=== PATIENT | female | born 1955 | race Caucasian/White ===

== ENCOUNTER 2016-07-13 17:43 | Emergency (ER) | payer OTHER ==
[~2016-07-13 17:43] MED LIST: CLARITIN10 M4 PO; DIOVAN160 M PO; LOPID600 MG PO; LOVASTATIN40 M1 PO; OMEPRAZOLE40 MG PO; PEPCID20 MG PO; SYNTHROID100 MC1 PO; VITAMIN D-50000 IU/C PO
[2016-07-13] MEDS ORDERED: LEXAPRO10 M2 PO (19:42)
[2016-07-13] MEDS ORDERED: GLUCOPHAGE500 M3 PO (19:43)
[2016-07-13] MEDS ORDERED: SINGULAIR10 M1 PO (19:43)
[2016-09-18] MEDS ORDERED: LOVASTATIN40 M2 PO (20:44)
[2016-09-18] MEDS ORDERED: HYDROCODON-ACE1 EA17 PO (20:44)
[2016-09-18] MEDS ORDERED: MULTIVITAMINS1 EAC1 PO (20:44)
[2016-09-18] MEDS ORDERED: SINGULAIR10 M1 PO (20:45)
[2016-09-18] MEDS ORDERED: LEXAPRO10 M2 PO (20:45)
[2016-09-18] MEDS ORDERED: CLARITIN10 M6 PO (20:45)
[2016-09-18] MEDS ORDERED: RANITIDINE HCL150 M2 PO (20:45)
[2016-09-18] MEDS ORDERED: VITAMIN D250000 UNI1 PO (20:46)
[2016-09-18] MEDS ORDERED: DIOVAN160 M1 PO (20:46)
[2016-09-18] MEDS ORDERED: OMEPRAZOLE40 M2 PO (20:46)
[2016-09-18] MEDS ORDERED: FLONASE ALLERG9.9 ML (20:46)
[2016-09-18] MEDS ORDERED: SYNTHROID100 MC1 PO (20:47)
[2016-09-18] MEDS ORDERED: GLUCOPHAGE500 M3 PO (20:47)
[2016-09-19] MEDS ORDERED: CYCLOBENZAPRINE5 M1 PO (11:33)
[2016-09-19] MEDS ORDERED: NORCO 5-325 TA1 EACH PO (11:35)
[2016-09-20] MEDS ORDERED: TYLENOL325 M2 PO (10:27)
== END 2016-07-13 21:40 ==
LOC: EDMED 17:43
DX: F07.81 Postconcussional syndrome (principal); G44.309 Post-traumatic headache, unspecified, not intractable; S16.1XXA Strain of muscle, fascia and tendon at neck level, initial encounter; W06.XXXA Fall from bed, initial encounter